=== PATIENT | male | born 1955 | race Caucasian/White ===

== ENCOUNTER 2017-11-28 13:00 | Outpatient (RCR) | payer BC ==
[2017-10-24 09:09] LABS: HEMATOCRIT 42.9 % (42.0-52.0); HEMOGLOBIN 14.6 g/dl (13.5-18.0); MEAN CELL VOLUME 85 fl (80.0-100.0); MEAN CORPUSCULAR HEMOGLOBIN 29 pg (27.0-31.0); MEAN CORPUSCULAR HGB CONC 34 g/dl (33.0-37.0); MEAN PLATELET VOLUME 10.8 fl (7.4-10.4); PLATELET COUNT 162 K/mm3 (130-400); RED BLOOD COUNT 5.06 M/mm3 (4.20-5.60); REDCELL DISTRIBUTION WIDTH-CV 13.1 % (11.5-14.5)
[2017-10-24 09:25] VITALS: BP 168/84; PULSE 60; TEMP 98
[2017-10-24 09:29] LABS: ALBUMIN 3.6 gm/dL (3.5-5.0); BILIRUBIN,TOTAL 0.4 mg/dL (0.0-1.0); CALCIUM 9.2 mg/dL (8.4-10.2); CREATININE, serum 0.82 mg/dL (0.66-1.25); TOTAL PROTEIN 6.5 gm/dL (6.4-8.2)
[2017-10-24 09:47] LABS: BAND 2 % (0-10); BASOPHIL 1 % (0-2); EOSINOPHIL 4 % (0-4); LYMPHOCYTE 18 % (20.0-51.0); NEUTROPHILS 72 % (42.0-75.2)
[2017-10-24 09:48] LABS: PLATELET ESTIMATE NORMAL (NORMAL); TOXIC GRANULATION PRESENT
[2017-10-25 10:01] VITALS: BP 122/79; PULSE 70; TEMP 98.2
[2017-10-31 13:07] VITALS: BP 125/71; PULSE 69; TEMP 98.9
[2017-10-31 13:10] LABS: HEMATOCRIT 44.4 % (42.0-52.0); HEMOGLOBIN 15.5 g/dl (13.5-18.0); MEAN CELL VOLUME 82 fl (80.0-100.0); MEAN CORPUSCULAR HEMOGLOBIN 29 pg (27.0-31.0); MEAN CORPUSCULAR HGB CONC 35 g/dl (33.0-37.0); MEAN PLATELET VOLUME 10.9 fl (7.4-10.4); PLATELET COUNT 163 K/mm3 (130-400); REDCELL DISTRIBUTION WIDTH-CV 12.6 % (11.5-14.5)
[2017-10-31 13:17] LABS: CREATININE, serum 0.83 mg/dL (0.66-1.25); MAGNESIUM 1.9 mg/dL (1.6-2.3)
[2017-10-31 13:52] LABS: BAND 5 % (0-10); EOSINOPHIL 2 % (0-4); LYMPHOCYTE 16 % (20.0-51.0); NEUTROPHILS 71 % (42.0-75.2); PLATELET ESTIMATE NORMAL (NORMAL)
[2017-11-06 13:20] LABS: HEMATOCRIT 44.6 % (42.0-52.0); MEAN CELL VOLUME 85 fl (80.0-100.0); MEAN CORPUSCULAR HEMOGLOBIN 29 pg (27.0-31.0); MEAN CORPUSCULAR HGB CONC 34 g/dl (33.0-37.0); MEAN PLATELET VOLUME 10.5 fl (7.4-10.4); PLATELET COUNT 135 K/mm3 (130-400); RED BLOOD COUNT 5.25 M/mm3 (4.20-5.60); REDCELL DISTRIBUTION WIDTH-CV 12.6 % (11.5-14.5)
[2017-11-06 13:21] VITALS: BP 120/60; PULSE 78; TEMP 98.1
[2017-11-06 13:27] LABS: BILIRUBIN,TOTAL 0.4 mg/dL (0.0-1.0); CALCIUM 9.3 mg/dL (8.4-10.2); CREATININE, serum 0.95 mg/dL (0.66-1.25); POTASSIUM 4.1 mmol/L (3.4-5.0); TOTAL PROTEIN 6.9 gm/dL (6.4-8.2)
[2017-11-06 14:32] LABS: BAND 2 % (0-10); EOSINOPHIL 2 % (0-4); LYMPHOCYTE 3 % (20.0-51.0); NEUTROPHILS 90 % (42.0-75.2); PLATELET ESTIMATE DECREASED (NORMAL)
[2017-11-14 13:38] LABS: HEMATOCRIT 38.9 % (42.0-52.0); HEMOGLOBIN 13.6 g/dl (13.5-18.0); MEAN CELL VOLUME 83 fl (80.0-100.0); MEAN CORPUSCULAR HEMOGLOBIN 29 pg (27.0-31.0); MEAN CORPUSCULAR HGB CONC 35 g/dl (33.0-37.0); MEAN PLATELET VOLUME 10.6 fl (7.4-10.4); PLATELET COUNT 120 K/mm3 (130-400); REDCELL DISTRIBUTION WIDTH-CV 12.1 % (11.5-14.5)
[2017-11-14 13:41] VITALS: BP 116/70; PULSE 65; TEMP 98.5
[2017-11-14 13:49] LABS: CREATININE, serum 0.83 mg/dL (0.66-1.25); MAGNESIUM 1.8 mg/dL (1.6-2.3)
[2017-11-14 14:31] LABS: BAND 1 % (0-10); EOSINOPHIL 3 % (0-4); LYMPHOCYTE 7 % (20.0-51.0); NEUTROPHILS 81 % (42.0-75.2); PLATELET ESTIMATE DECREASED (NORMAL)
[2017-11-21 13:00] VITALS: BP 118/72; PULSE 69; TEMP 98
[2017-11-21 13:19] LABS: HEMATOCRIT 38.3 % (42.0-52.0); HEMOGLOBIN 13.2 g/dl (13.5-18.0); MEAN CELL VOLUME 83 fl (80.0-100.0); MEAN CORPUSCULAR HEMOGLOBIN 29 pg (27.0-31.0); MEAN CORPUSCULAR HGB CONC 35 g/dl (33.0-37.0); MEAN PLATELET VOLUME 10.7 fl (7.4-10.4); PLATELET COUNT 75 K/mm3 (130-400); RED BLOOD COUNT 4.61 M/mm3 (4.20-5.60); REDCELL DISTRIBUTION WIDTH-CV 12.4 % (11.5-14.5)
[2017-11-21 13:25] LABS: CREATININE, serum 0.74 mg/dL (0.66-1.25); MAGNESIUM 1.7 mg/dL (1.6-2.3)
[2017-11-21 14:08] LABS: BAND 5 % (0-10); BASOPHIL 1 % (0-2); EOSINOPHIL 1 % (0-4); LYMPHOCYTE 10 % (20.0-51.0); NEUTROPHILS 81 % (42.0-75.2); PLATELET ESTIMATE DECREASED (NORMAL)
[~2017-11-28] VITALS: Ht 185.4 cm; Wt 116.0 kg
[~2017-11-28 13:00] MED LIST: ASPIRIN 81M81 MG/TA2 PO; CRESTOR 10MG10 MG PO; LOPRESSOR 225 MG/TAB PO; MAVIK2 MG PO; NITROSTAT0.4 MG/TAB SL; PLAVIX 75MG TAB75 MG PO
[2017-11-28 13:05] VITALS: BP 132/73; PULSE 77; TEMP 98.3
[2017-11-28 13:21] LABS: HEMOGLOBIN 12.8 g/dl (13.5-18.0); MEAN CELL VOLUME 81 fl (80.0-100.0); MEAN CORPUSCULAR HEMOGLOBIN 29 pg (27.0-31.0); MEAN CORPUSCULAR HGB CONC 35 g/dl (33.0-37.0); MEAN PLATELET VOLUME 9.8 fl (7.4-10.4); PLATELET COUNT 67 K/mm3 (130-400); RED BLOOD COUNT 4.45 M/mm3 (4.20-5.60); REDCELL DISTRIBUTION WIDTH-CV 12.4 % (11.5-14.5)
[2017-11-28 13:32] LABS: BILIRUBIN,TOTAL 0.7 mg/dL (0.0-1.0); CREATININE, serum 0.93 mg/dL (0.66-1.25); MAGNESIUM 1.6 mg/dL (1.6-2.3); POTASSIUM 3.4 mmol/L (3.4-5.0); TOTAL PROTEIN 6.8 gm/dL (6.4-8.2)
[2017-11-28 13:37] LABS: HEMATOCRIT 36.2 % (42.0-52.0)
[2017-11-28 13:47] LABS: BAND 3 % (0-10); EOSINOPHIL 1 % (0-4); LYMPHOCYTE 5 % (20.0-51.0); NEUTROPHILS 88 % (42.0-75.2)
[2017-11-28 13:50] LABS: PLATELET ESTIMATE DECREASED (NORMAL)
[2017-12-02] MEDS ORDERED: NORCO 325 MG-51 TAB PO (14:59)
[2017-12-02] MEDS ORDERED: ZOFRAN8 MG PO (15:00)
[2017-12-02] MEDS ORDERED: VALIUM 10MG10 MG/TAB PO (15:01)
[2017-12-02] MEDS ORDERED: ELIQUIS 5MG PO (16:38)
== END 2017-12-03 11:13 | disposition home or self-care (01) ==
LOC: EUO 13:00
PROVIDERS: Internal Medicine Medical Oncology
DX: C01 Malignant neoplasm of base of tongue (principal); Z45.2 Encounter for adjustment and management of vascular access device; Z95.9 Presence of cardiac and vascular implant and graft, unspecified
CPT/HCPCS: C1751

== ENCOUNTER 2017-12-02 14:37 | Emergency (ER) | payer BC ==
[~2017-12-02] VITALS: Ht 185.4 cm; Wt 113.6 kg
[2017-12-02 14:45] VITALS: TEMP 99.1
[2017-12-02] MEDS ORDERED: NORCO 325 MG-51 TAB PO (14:59)
[2017-12-02] MEDS ORDERED: ZOFRAN8 MG PO (15:00)
[2017-12-02] MEDS ORDERED: VALIUM 10MG10 MG/TAB PO (15:01)
[2017-12-02 16:06] LABS: BASO % 0.3 % (0.0-2.0); EOS % 0.9 % (0-4.0); GRAN # 2.7 (1.4-6.5); GRAN % 82.7 % (42.2-75.2); HEMOGLOBIN 11.5 g/dl (13.5-18.0); LYMPH # 0.2 (1.2-3.4); LYMPH % 6.8 % (20.0-51.0); MEAN CELL VOLUME 83 fl (80.0-100.0); MEAN CORPUSCULAR HEMOGLOBIN 29 pg (27.0-31.0); MEAN CORPUSCULAR HGB CONC 35 g/dl (33.0-37.0); MEAN PLATELET VOLUME 10.5 fl (7.4-10.4); MONO # 0.3 (0.1-0.6); MONO % 9.3 % (1.7-9.3); PLATELET COUNT 74 K/mm3 (130-400); RED BLOOD COUNT 3.97 M/mm3 (4.20-5.60)
[2017-12-02 16:11] LABS: HEMATOCRIT 32.9 % (42.0-52.0)
[2017-12-02 16:19] LABS: ALBUMIN 3.8 gm/dL (3.5-5.0); BILIRUBIN,TOTAL 0.3 mg/dL (0.0-1.0); C-REACTIVE PROTEIN 1.3 mg/dL (0.0-0.9); CREATININE, serum 0.71 mg/dL (0.66-1.25); TOTAL PROTEIN 6.4 gm/dL (6.4-8.2)
[2017-12-02 16:35] LABS: PARTIAL THROMBOPLASTIN TIME 30.6 SECONDS (26.0-37.0)
[2017-12-02] MEDS ORDERED: ELIQUIS 5MG PO (16:38)
[2017-12-02 17:09] VITALS: BP 122/77; PULSE 75
== END 2017-12-02 17:26 | disposition home or self-care (01) ==
LOC: COL.ER 14:37
PROVIDERS: Emergency Medicine
DX: I82.621 Acute embolism and thrombosis of deep veins of right upper extremity (principal); C06.9 Malignant neoplasm of mouth, unspecified; I25.10 Atherosclerotic heart disease of native coronary artery without angina pectoris; E78.5 Hyperlipidemia, unspecified; I10 Essential (primary) hypertension; Z95.5 Presence of coronary angioplasty implant and graft; Z79.02 Long term (current) use of antithrombotics/antiplatelets; Z79.82 Long term (current) use of aspirin

== ENCOUNTER → 2017-12-05 | Outpatient (CLI) | payer BC ==
[~2017-12-05] MED LIST changes: +ELIQUIS 5MG PO; +NORCO 325 MG-51 TAB PO; +VALIUM 10MG10 MG/TAB PO; +ZOFRAN8 MG PO
[2017-12-05 14:03] LABS: HEMOGLOBIN 11.3 g/dl (13.5-18.0); MEAN CELL VOLUME 84 fl (80.0-100.0); MEAN CORPUSCULAR HEMOGLOBIN 29 pg (27.0-31.0); MEAN CORPUSCULAR HGB CONC 34 g/dl (33.0-37.0); MEAN PLATELET VOLUME 9.9 fl (7.4-10.4); PLATELET COUNT 113 K/mm3 (130-400); RED BLOOD COUNT 3.92 M/mm3 (4.20-5.60); REDCELL DISTRIBUTION WIDTH-CV 14.5 % (11.5-14.5)
[2017-12-05 14:35] LABS: BAND 38 % (0-10); BASOPHIL 2 % (0-2); EOSINOPHIL 2 % (0-4); LYMPHOCYTE 12 % (20.0-51.0); NEUTROPHILS 38 % (42.0-75.2); PLATELET ESTIMATE DECREASED (NORMAL)
[2017-12-05 14:37] LABS: POLYCHROMASIA 1+
== END ==
LOC: COL.LAB 13:16
PROVIDERS: Internal Medicine Medical Oncology
DX: C01 Malignant neoplasm of base of tongue (principal)

== ENCOUNTER 2018-01-17 11:15 | Outpatient (RCR) | payer BC | END 2018-02-04 | disposition home or self-care (01) | LOC: WSST | DX: C01 Malignant neoplasm of base of tongue (principal) ==

== ENCOUNTER 2021-10-20 16:23 | Emergency (ER) | payer BC ==
[~2021-10-20] VITALS: Ht 185.4 cm; Wt 104.5 kg
[2021-10-20 17:01] VITALS: BP 107/65; PULSE 82; TEMP 98.6
[2021-10-20 17:51] LABS: BASO % 0.2 % (0.0-2.0); EOS # 0.2 K/mm3 (0.0-0.7); EOS % 1.9 % (0.0-4.0); GRAN # 7.5 K/mm3 (1.4-6.5); GRAN % 82.8 % (42.2-75.2); HEMATOCRIT 43.9 % (42.0-52.0); HEMOGLOBIN 15.4 g/dl (13.5-18.0); LYMPH # 0.8 K/mm3 (1.2-3.4); LYMPH % 9.1 % (20.0-51.0); MEAN CELL VOLUME 84 fl (80.0-100.0); MEAN CORPUSCULAR HEMOGLOBIN 30 pg (27-31); MEAN CORPUSCULAR HGB CONC 35 g/dl (33.0-37.0); MEAN PLATELET VOLUME 10.4 fl (7.4-10.4); MONO # 0.5 K/mm3 (0.1-0.6); MONO % 5.8 % (1.7-9.3); PLATELET COUNT 239 K/mm3 (130-400); RED BLOOD COUNT 5.22 M/mm3 (4.20-5.60); REDCELL DISTRIBUTION WIDTH-CV 12.7 % (11.5-14.5)
[2021-10-20] MEDS ORDERED: COREG 3.123.125 MG/T (17:57)
[2021-10-20 18:23] LABS: BILIRUBIN,TOTAL 0.5 mg/dL (0.2-1.2); CALCIUM 8.9 mg/dL (8.4-10.2); POTASSIUM 3.9 mmol/L (3.5-4.5); TOTAL PROTEIN 6.8 gm/dL (6.2-8.1)
[2021-10-20 18:32] LABS: MAGNESIUM 2.1 mg/dL (1.6-2.6)
[2021-10-20] MEDS ORDERED: ELIQUIS 5MG PO (18:49)
== END 2021-10-20 19:05 | disposition home or self-care (01) ==
LOC: COL.ER 16:23
PROVIDERS: Family Medicine
DX: I80.221 Phlebitis and thrombophlebitis of right popliteal vein (principal); L50.9 Urticaria, unspecified; Z79.01 Long term (current) use of anticoagulants; Z79.82 Long term (current) use of aspirin
CPT/HCPCS: J1100

== ENCOUNTER → 2021-10-21 | Outpatient (CLI) | payer BC ==
[~2021-10-21] MED LIST changes: +COREG 3.123.125 MG/T
== END ==
LOC: COL.VAS 08:09
DX: I82.811 Embolism and thrombosis of superficial veins of right lower extremity (principal)